=== PATIENT | female | born 1945 | race Caucasian/White ===

== ENCOUNTER 2017-07-04 19:49 | Emergency (ER) | payer MEDICARE ==
[~2017-07-04] VITALS: Ht 165.1 cm; Wt 79.4 kg
[2017-07-04 20:16] LABS: BASOPHILS % 0.8 % (0.0-1.0); EOSINOPHILS % 0.8 % (0.0-6.0); HEMATOCRIT 41.5 % (34.2-44.1); HEMOGLOBIN 13.6 g/dL (12.0-16.0); LYMPHOCYTES # (AUTO) 1.3 (1.0-3.2); LYMPHOCYTES % 25.9 % (18.0-39.1); MEAN CORPUSCULAR HEMOGLOBIN 31.2 pg (28-32); MEAN CORPUSCULAR HGB CONC 32.8 g/dL (31-35); MEAN CORPUSCULAR VOLUME 95.2 fL (81-99); MONOCYTES # (AUTO) 0.5 (0.2-0.8); MONOCYTES % 9.1 % (4.4-11.3); NEUTROPHILS # (AUTO) 3.2 (2.1-6.9); NEUTROPHILS % 63.2 % (38.7-80.0); PLATELET COUNT 173 x10e3/uL (140-360); RED BLOOD COUNT 4.36 x10e6/uL (3.6-5.1); RED CELL DISTRIBUTION WIDTH 12.7 % (11.7-14.4)
[2017-07-04 20:24] LABS: INR 1.97; PROTHROMBIN TIME 21.1 seconds (11.9-14.5)
[2017-07-04 20:25] LABS: PARTIAL THROMBOPLASTIN TIME 37.5 seconds (23.8-35.5)
[2017-07-04 20:34] LABS: ALANINE AMINOTRANSFERASE 16 IU/L (0-55); ALBUMIN 3.6 g/dL (3.5-5.0); ALKALINE PHOSPHATASE 84 IU/L (40-150); ANION GAP 13.7 mmol/L (8-16); BLOOD UREA NITROGEN 10 mg/dL (7-26); BUN/CREATININE RATIO 13 (6-25); CALCIUM 9.2 mg/dL (8.4-10.2); CARBON DIOXIDE 23 mmol/L (22-29); CHLORIDE 108 mmol/L (98-107); CREATINE KINASE 67 IU/L (29-168); CREATININE, SERUM 0.76 mg/dL (0.57-1.11); EST GLOMERULAR FILTRATION RATE > 60 ML/MIN (60-); GLUCOSE 100 mg/dL (74-118); POTASSIUM 3.7 mmol/L (3.5-5.1); SODIUM 141 mmol/L (136-145)
[2017-07-04 20:37] LABS: BILIRUBIN,URINE NEGATIVE (NEGATIVE); COLOR,URINE YELLOW (YELLOW); KETONES,URINE TRACE (NEGATIVE); LEUKOCYTE ESTERASE ,URINE 2+ (NEGATIVE); NITRITE,URINE NEGATIVE (NEGATIVE); PROTEIN,URINE DIPSTICK NEGATIVE (NEGATIVE); URINE UROBILINOGEN 0.2 mg/dL (0.2 - 1)
[2017-07-04 20:38] LABS: CLARITY,URINE SL CLOUDY (CLEAR)
--- NOTE | 2017-07-04 20:46 | Diagnostic Imaging Report ---
EXAMINATION: CHEST SINGLE (PORTABLE) INDICATION: \S\CHEST PAIN \S\[id number] \S\2020 \S\Y COMPARISON: None FINDINGS: AP view TUBES and LINES: None. LUNGS: Lungs are well inflated. Lungs are clear. There is no evidence of pneumonia or pulmonary edema. PLEURA: No pleural effusion or pneumothorax. HEART AND MEDIASTINUM: The cardiac silhouette is mildly prominent. Atherosclerotic calcifications of the aortic arch. BONES AND SOFT TISSUES: No acute osseous lesion. Soft tissues are unremarkable. UPPER ABDOMEN: No free air under the diaphragm. IMPRESSION: No acute thoracic abnormality. Signed by: Dr. Svetlana Ramos M.D. on 07/04/2017 8:43 PM
[2017-07-04 21:02] LABS: BACTERIA,URINE FEW /HPF; EPITHELIAL CELLS,URINE MODERATE /LPF; MUCUS,URINE FEW (RARE)
== END 2017-07-04 21:41 | disposition home or self-care (01) ==
LOC: ER 19:49
DX: R10.13 Epigastric pain (principal); N30.91 Cystitis, unspecified with hematuria; M79.1 Myalgia
CPT/HCPCS: 36415; 71045; 80053; 81001; 82550; 82553; 83880; 84484; 85025; 85610; 85730; 93005; 99283

== ENCOUNTER 2017-09-19 14:15 | Emergency (ER) | payer MEDICARE ==
[~2017-09-19] VITALS: Ht 165.1 cm; Wt 79.4 kg
--- OUTSIDE RECORDS SUMMARY | 2017-09-19 14:17 | XMS REPORT ---
[facility] Address Unknown Phone Unavailable Care Team Providers Care Kiln Firer Helper Name Role Phone SALO ESTES Unavailable Unavailable Problems This patient has no known problems. Allergies, Adverse Reactions, Alerts This patient has no known allergies or adverse reactions. Medications This patient has no known medications. Results Test Description Test Time Test Comments Text Results Atomic Results Result Comments CHEST SINGLE (PORTABLE) [place] [address] Patient Name: VIVIAN MEZA MR #: [id number] : 1945 Age/Sex: 72/F Req #: [id number] Adm Physician: Ordered by: KAYCEE CABAN CONSULTING SOLUTION MANAGER Report #: [id number] Location: ER Room/Bed: Procedure: [id number] DX/CHEST SINGLE (PORTABLE) Exam Date: 07/04/17 Exam Time: 2019 REPORT STATUS: Signed EXAMINATION: CHEST SINGLE ( PORTABLE) INDICATION: COMPARISON: None FINDINGS: AP view TUBES and LINES: None. LUNGS: Lungs are well inflated. Lungs are clear. There is no evidence of pneumonia or pulmonary edema. PLEURA: No pleural effusion or pneumothorax. HEART AND MEDIASTINUM: The cardiac silhouette is mildly prominent. Atherosclerotic calcifications of the aortic arch. BONES AND SOFT TISSUES: No acute osseous lesion. Soft tissues are unremarkable. UPPER ABDOMEN: No free air under the diaphragm. IMPRESSION: No acute thoracic abnormality. Signed by: Dr. Alex Phelps M.D. on 07/04/2017 8:43 PM Dictated By: ALEX PHELPS MD 42 Transcribed By: LORI on 07/04/172042 COPY TO: KAYCEE CABAN NP
--- OUTSIDE RECORDS SUMMARY | 2017-09-19 14:17 | XMS REPORT | Continuity of Care Document ---
Author Author [facility] Organization [facility] Address [address] [place] [address] Phone Unavailable Care Team Providers Care Painting Technician Name Role Phone RUTHIE GUZMAN MD PCP Insurance Providers Guarantor Vivian Pritchett Address [address] [place] [address] Email [email or web address] [email or web address] Payer [employer] Medicare Replacement Policy Number [id number] Subscriber's Name Vivian Pritchett Relationship 18 Self / Same As Patient Group Number [id number] Group Name PPO VALUE Effective Date 16 Advance Directives Directive Response Recorded Date/Time Does the patient have an advance directive? No 07/04/17 8:49pm If yes, is advance directive on file with [facility]? No 07/04/17 8:49pm If not on file with [facility] will patient provide a copy? No 07/04/17 8:49pm Do you have a Directive to Physician? No 07/04/17 8:49pm Do you have a Medical Power of Drop Hammer Operator Helper? No 07/04/17 8:49pm Do you have an out of hospital Do Not Resuscitate Order? No 07/04/17 8:49pm Do you have any special needs we should be aware of? No 07/04/17 8:49pm Do you have a support person here with you today? No 07/04/17 8:49pm Did patient receive Notice of Privacy Practices? Yes 07/04/17 8:49pm Did patient receive patient rights and responsibilities? Yes 07/04/17 8:49pm Problems No problem information available. Medications No medication information available. Social History Smoking Status Start Date Stop Date Never Smoker Hospital Discharge Instructions No hospital discharge instruction information available. Plan of Care Discharge Date 07/04/17 9:41pm Disposition HOME, SELF-CARE Condition at Discharge Stable Instructions/Education Provided Strains Urinary Tract Infection - Women Forms Provided Work/School Excuse Prescriptions See Medication Section Additional Instructions/Education FOLLOW UP WITH YOUR DOCTOR SCHEDULED FRIDAY TAKE MEDICATIONS DIRECTED INCREASE FLUIDS-WATER REST NO STRENUOUS ACTIVITY DO NOT WORK FOR 2 DAYS NO ALCOHOL Functional Status No functional status information available. Allergies, Adverse Reactions, Alerts No known allergies. Immunizations No immunization information available. Vital Signs Acute Vital Signs Vital Response Date/Time Height 5 ft 5 in 07/04/2017 7:58pm Weight 175 lb 07/04/2017 7:58pm Body Mass Index 29.1 kg/m^2 07/04/2017 7:58pm Results Laboratory Results Test Name Result Units Flags Reference Collection Date/Time Result Date/ Time Comments White Blood Count 5.06 x10e3/uL 4.8-10.8 07/04/2017 8:00pm 07/04/2017 8 :17pm Red Blood Count 4.36 x10e6/uL 3.6-5.1 07/04/2017 8:00pm 07/04/2017 8: 17pm Hemoglobin 13.6 g/dL 12.0-16.0 07/04/2017 8:00pm 07/04/2017 8:17pm Hematocrit 41.5 % 34.2-44.1 07/04/2017 8:00pm 07/04/2017 8:17pm Mean Corpuscular Volume 95.2 fL 81-99 07/04/2017 8:00pm 07/04/2017 8: 17pm Mean Corpuscular Hemoglobin 31.2 pg 28-32 07/04/2017 8:00pm 07/04/2017 8:17pm Mean Corpuscular Hemoglobin Concent 32.8 g/dL 31-35 07/04/2017 8:00pm 07/04/2017 8:17pm Red Cell Distribution Width 12.7 % 11.7-14.4 07/04/2017 8:00pm 2017 8:17pm Platelet Count 173 x10e3/uL 140-360 07/04/2017 8:00pm 07/04/2017 8: 17pm Neutrophils (%) (Auto) 63.2 % 38.7-80.0 07/04/2017 8:00pm 07/04/2017 8: 17pm Lymphocytes (%) (Auto) 25.9 % 18.0-39.1 07/04/2017 8:00pm 07/04/2017 8: 17pm Monocytes (%) (Auto) 9.1 % 4.4-11.3 07/04/2017 8:00pm 07/04/2017 8: 17pm Eosinophils (%) (Auto) 0.8 % 0.0-6.0 07/04/2017 8:00pm 07/04/2017 8: 17pm Basophils (%) (Auto) 0.8 % 0.0-1.0 07/04/2017 8:00pm 07/04/2017 8:17pm IM GRANULOCYTES % 0.2 % 0.0-1.0 07/04/2017 8:00pm 07/04/2017 8:17pm Neutrophils # (Auto) 3.2 2.1-6.9 07/04/2017 8:00pm 07/04/2017 8:17pm Lymphocytes # (Auto) 1.3 1.0-3.2 07/04/2017 8:00pm 07/04/2017 8:17pm Monocytes # (Auto) 0.5 0.2-0.8 07/04/2017 8:00pm 07/04/2017 8:17pm Eosinophils # (Auto) 0.0 0.0-0.4 07/04/2017 8:00pm 07/04/2017 8:17pm Basophils # (Auto) 0.0 0.0-0.1 07/04/2017 8:00pm 07/04/2017 8:17pm Absolute Immature Granulocyte (auto 0.01 x10e3/uL 0-0.1 07/04/2017 8: 00pm 07/04/2017 8:17pm Prothrombin Time 21.1 seconds H 11.9-14.5 07/04/2017 8:00pm 07/04/2017 8 :25pm Prothromb Time International Ratio 1.97 07/04/2017 8:00pm 2017 8:25pm Oral Anticoagulant Therapy INR Values: 1. Low Intensity Therapy 1.5 - 2.0 2. Moderate Intensity Therapy 2.0 - 3.0 3. High Intensity Therapy(1) 2.5 - 3.5 4. High Intensity Therapy(2) 3.0 - 4.0 5. Panic Value INR > 5.0 Activated Partial Thromboplast Time 37.5 seconds H 23.8-35.5 07/04/2017 8 :00pm 07/04/2017 8:25pm Urine Color YELLOW YELLOW 07/04/2017 8:22pm 07/04/2017 8:38pm Urine Clarity SL CLOUDY CLEAR 07/04/2017 8:22pm 07/04/2017 8:38pm Urine Specific [place] 1.020 1.010-1.025 07/04/2017 8:22pm 2017 8:38pm Urine pH 5 5 - 7 07/04/2017 8:22pm 07/04/2017 8:38pm Urine Leukocyte Esterase 2+ H NEGATIVE 07/04/2017 8:22pm 07/04/2017 8: 38pm Urine Nitrite NEGATIVE NEGATIVE 07/04/2017 8:22pm 07/04/2017 8:38pm Urine Protein NEGATIVE NEGATIVE 07/04/2017 8:22pm 07/04/2017 8:38pm Urine Glucose (UA) NEGATIVE NEGATIVE 07/04/2017 8:22pm 07/04/2017 8: 38pm Urine Ketones TRACE H NEGATIVE 07/04/2017 8:22pm 07/04/2017 8:38pm Urine Urobilinogen 0.2 mg/dL 0.2 - 1 07/04/2017 8:22pm 07/04/2017 8: 38pm Urine Bilirubin NEGATIVE NEGATIVE 07/04/2017 8:22pm 07/04/2017 8: 38pm Urine Blood 2+ H NEGATIVE 07/04/2017 8:22pm 07/04/2017 8:38pm Urine WBC 11-20 /HPF H 0-5 07/04/2017 8:22pm 07/04/2017 9:02pm Urine RBC 6-10 /HPF H 0-5 07/04/2017 8:22pm 07/04/2017 9:02pm Urine Bacteria FEW /HPF NONE 07/04/2017 8:22pm 07/04/2017 9:02pm Urine Epithelial Cells MODERATE /LPF NONE 07/04/2017 8:22pm 07/04/2017 9:02pm Urine Mucus FEW H RARE 07/04/2017 8:22pm 07/04/2017 9:02pm Sodium Level 141 mmol/L 136-145 07/04/2017 8:00pm 07/04/2017 8:35pm Potassium Level 3.7 mmol/L 3.5-5.1 07/04/2017 8:00pm 07/04/2017 8:35pm Chloride Level 108 mmol/L H 98-107 07/04/2017 8:00pm 07/04/2017 8:35pm Carbon Dioxide Level 23 mmol/L 22-29 07/04/2017 8:00pm 07/04/2017 8: 35pm Anion Gap 13.7 mmol/L 8-16 07/04/2017 8:00pm 07/04/2017 8:35pm Blood Urea Nitrogen 10 mg/dL 7-26 07/04/2017 8:00pm 07/04/2017 8:35pm Creatinine 0.76 mg/dL 0.57-1.11 07/04/2017 8:00pm 07/04/2017 8:35pm BUN/Creatinine Ratio 13 6-25 07/04/2017 8:00pm 07/04/2017 8:35pm Estimat Glomerular Filtration Rate > 60 ML/MIN 60- 07/04/2017 8:00pm 8:35pm Ranges were taken from the National Kidney Disease Education Program and the National Kid[employer] literature. Reference ranges: 60 or greater: Normal 16-59 (for 3 consecutive months): Chronic kidney disease 15 or less: Kidney failure Glucose Level 100 mg/dL 74-118 07/04/2017 8:00pm 07/04/2017 8:35pm Calcium Level 9.2 mg/dL 8.4-10.2 07/04/2017 8:00pm 07/04/2017 8:35pm Total Bilirubin 0.4 mg/dL 0.2-1.2 07/04/2017 8:00pm 07/04/2017 8:35pm Aspartate Amino Transf (AST/SGOT) 20 IU/L 5-34 07/04/2017 8:00pm 2017 8:35pm Alanine Aminotransferase (ALT/SGPT) 16 IU/L 0-55 07/04/2017 8:00pm 06/2017 8:35pm Total Protein 7.2 g/dL 6.5-8.1 07/04/2017 8:00pm 07/04/2017 8:35pm Albumin 3.6 g/dL 3.5-5.0 07/04/2017 8:00pm 07/04/2017 8:35pm Globulin 3.6 g/dL H 2.3-3.5 07/04/2017 8:00pm 07/04/2017 8:35pm Albumin/Globulin Ratio 1.0 0.8-2.0 07/04/2017 8:00pm 07/04/2017 8: 35pm Alkaline Phosphatase 84 IU/L 40-150 07/04/2017 8:00pm 07/04/2017 8: 35pm B-Type Natriuretic Peptide 88.0 pg/mL 0-100 07/04/2017 8:00pm 2017 8:41pm Creatine Kinase 67 IU/L 29-168 07/04/2017 8:00pm 07/04/2017 8:35pm Creatine Kinase MB 1.30 ng/mL 0-5.0 07/04/2017 8:00pm 07/04/2017 8: 41pm Troponin I < 0.001 ng/mL 0-0.300 07/04/2017 8:00pm 07/04/2017 8:41pm Procedures No procedure information available. Encounters Encounter Location Arrival/Admit Date Discharge/Depart Date Attending Provider Departed Emergency Room [facility] 07/04/17 7:49pm 9:41pm SALO ESTES MD
[2017-09-19] MEDS ORDERED: KETOROLAC TROMETHAMINE 60 MG/2 ML VIAL IM ONE (14:45)
[2017-09-19] MEDS ORDERED: DEXAMETHASONE SOD PHOS 10 MG/1 ML VIAL INJ ONE (14:45)
[2017-09-19 15:25] VITALS: BP 161/86
== END 2017-09-19 15:38 | disposition home or self-care (01) ==
LOC: ER 14:15
DX: M54.2 Cervicalgia (principal); M62.838 Other muscle spasm
CPT/HCPCS: 99282; J1100; J1885